=== PATIENT | male | born 1935 | race Two or more races ===

== ENCOUNTER → 2016-12-13 | Outpatient (CLI) | payer OTHER | LOC: CIMAGING 13:58 | PROVIDERS: ATTEND Podiatrist | DX: M79.671 Pain in right foot (principal); M81.0 Age-related osteoporosis without current pathological fracture | CPT/HCPCS: 73630-PO ==

== ENCOUNTER → 2017-03-29 | Outpatient (CLI) | payer OTHER | LOC: CIMAGING 15:10 | PROVIDERS: ATTEND Internal Medicine Nephrology | DX: N18.3 Chronic kidney disease, stage 3 (moderate) (principal); R93.422 Abnormal radiologic findings on diagnostic imaging of left kidney | CPT/HCPCS: 76770-PO ==